=== PATIENT | male | born 2005 | race Caucasian/White ===

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

== ENCOUNTER 2023-09-30 11:09 | Inpatient (IN) ==
[2023-09-30 11:41] LABS: ABS Basophils 0.1 10^3/uL (0.0-0.1); ABS Eosinophils 0.9 10^3/uL (0.0-0.5); ABS Monocytes 0.6 10^3/uL (0.0-1.1); ABS Neutrophils 9.3 10^3/uL (1.5-7.6); ABS Nucleated RBC 0.02 10^3/ul; Eosinophil % 7.9 %; Hematocrit 48.4 % (38-53); Hemoglobin 16.5 g/dL (13.2-16.3); Lymphocyte % 8.2 %; Mean Corpuscular Hemoglobin 30.3 pg (27-33); Mean Corpuscular Hgb Conc 34.1 g/dL (31-36); Mean Platelet Volume 8.2 fL (7.5-11.2); Nucleated Red Blood Cells % 0.2 %/100WBC (0.0-0.8); Platelet Count 323 10^3/uL (150-450); Red Blood Count 5.44 10^6/uL (4.06-5.63)
[2023-09-30 11:49] LABS: INR 1.16 (0.83-1.13)
[2023-09-30 12:25] LABS: Albumin 5.2 g/dL (3.2-5.2); Albumin/Globulin Ratio 1.8 (1-3); Calcium 10.6 mg/dL (8.6-10.3); Creatinine, Serum 0.89 mg/dL (0.67-1.17); Globulin 2.9 g/dL (2-4); Potassium 4.4 mmol/L (3.5-5.0); Total Bilirubin 0.8 mg/dL (0.2-1.0); Total Protein 8.1 g/dL (6.4-8.9); eGFR CKD-EPI 126.6 (>60)
[2023-09-30 13:19] LABS: High Sensitivity Troponin 1 Hr 4 pg/mL (<20)
[2023-09-30] MEDS: Albuterol/Ipratropium NEB.SOL (2.5/0.5 MG) 3 ML NEB.SOLN INH ONE ×2 (14:21→15:58)
[2023-09-30] MEDS ORDERED: Albuterol 2.5mg/3 ml (0.083%) NEB.SOLN INH ONE (14:22)
[2023-09-30] MEDS ORDERED: Albuterol/Ipratropium NEB.SOL (2.5/0.5 MG) 3 ML NEB.SOLN ONE (14:22)
[2023-09-30] MEDS ORDERED: EPINEPHrine Anaphylaxis SYR CERTADOSE SYR KIT ONE (14:25)
[2023-09-30] MEDS: methylPREDNISolone SOD SUCC 125 mg 2 ML VIAL IV ONE (14:26)
[2023-09-30] MEDS: Magnesium Sulfate 2 gm BAG 2 GM/50 ML BAG IVPB ONE (14:31)
[2023-09-30] MEDS: cefTRIAXone 1 gm/50 mL D5W 1 GM/50 ML BAG IV ONE (14:32)
[2023-09-30] MEDS: Lactated Ringers 1000 ml BAG 1,000 ML IV SCH (14:33)
[2023-09-30] MEDS ORDERED: Ondansetron 4 mg VIAL 2 MG/ML 2 ml VIAL ONE ×2 (14:37→21:00)
[2023-09-30] MEDS: Iohexol 350 (CONTRAST) 500 ML MDV IV ONE (15:11)
[2023-09-30] MEDS: Albuterol 2.5mg/3 ml (0.083%) NEB.SOLN INH ONE (15:12)
[2023-09-30] MEDS: Azithromycin 500 mg/250 ml NS 500 MG/250 ML BAG IVPB ONE (15:25)
[2023-09-30] MEDS: Ondansetron 4 mg VIAL 2 MG/ML 2 ml VIAL IV ONE ×2 (15:25→21:02)
[2023-09-30 17:25] LABS: PCO2 Arterial 36 mmHg (35-45); PO2 Arterial 74 mmHg (80-100)
[2023-09-30 17:33] LABS: C Reactive Protein 12.55 mg/L (<8.01)
[2023-09-30] MEDS ORDERED: Albuterol 2.5mg/3 ml (0.083%) NEB.SOLN INH PRN (18:02)
[2023-09-30] MEDS: Albuterol/Ipratropium NEB.SOL (2.5/0.5 MG) 3 ML NEB.SOLN INH SCH (19:30)
[2023-09-30] MEDS: methylPREDNISolone SOD SUCC 40 mg/ml 1 ml VIAL IV SCH (21:02)
[2023-10-01] MEDS: Lactated Ringers 1000 ml BAG 1,000 ML IV SCH (00:16)
[2023-10-01] MEDS: Albuterol/Ipratropium NEB.SOL (2.5/0.5 MG) 3 ML NEB.SOLN INH SCH (02:08)
[2023-10-01 06:48] LABS: Hematocrit 43.3 % (38-53); Hemoglobin 14.7 g/dL (13.2-16.3); Mean Corpuscular Hemoglobin 30.6 pg (27-33); Mean Corpuscular Hgb Conc 33.9 g/dL (31-36); Mean Corpuscular Volume 90.2 fL (80-97); Mean Platelet Volume 8.5 fL (7.5-11.2); Platelet Count 303 10^3/uL (150-450); Red Cell Distribution Width 14.2 % (12-17); White Blood Count 8.9 10^3/uL (3.6-10.2)
[2023-10-01 07:26] LABS: Creatinine, Serum 0.8 mg/dL (0.67-1.17); Potassium 4.6 mmol/L (3.5-5.0); eGFR CKD-EPI 130.7 (>60)
[2023-10-01] MEDS: cefTRIAXone 1 gm/50 mL D5W 1 GM/50 ML BAG IV SCH (15:27)
[2023-10-02 07:02] LABS: Calcium 9.8 mg/dL (8.6-10.3); Creatinine, Serum 0.87 mg/dL (0.67-1.17); Magnesium 2.2 mg/dL (1.9-2.7); Potassium 4.8 mmol/L (3.5-5.0); eGFR CKD-EPI 127.5 (>60)
[2023-10-02] MEDS ORDERED: Albuterol/Ipratropium NEB.SOL (2.5/0.5 MG) 3 ML NEB.SOLN INH PRN (08:25)
[2023-10-03] MEDS ORDERED: Prochlorperazine 5 mg/ml 2 ml VIAL (10 mg) IV PRN (07:14)
[2023-10-03] MEDS: Ondansetron 4 mg VIAL 2 MG/ML 2 ml VIAL IV PRN (07:28)
[2023-10-03 08:00] LABS: ABS Lymphocytes 1.6 10^3/uL (1.0-4.8); ABS Monocytes 0.6 10^3/uL (0.0-1.1); ABS Neutrophils 8.5 10^3/uL (1.5-7.6); ABS Nucleated RBC 0.01 10^3/ul; Hematocrit 45.9 % (38-53); Hemoglobin 15.9 g/dL (13.2-16.3); Lymphocyte % 15.2 %; Mean Corpuscular Hgb Conc 34.5 g/dL (31-36); Mean Corpuscular Volume 89.9 fL (80-97); Mean Platelet Volume 8.1 fL (7.5-11.2); Nucleated Red Blood Cells % 0.1 %/100WBC (0.0-0.8); Platelet Count 352 10^3/uL (150-450); Red Blood Count 5.11 10^6/uL (4.06-5.63); Red Cell Distribution Width 14.6 % (12-17); White Blood Count 10.8 10^3/uL (3.6-10.2)
[2023-10-03 08:43] LABS: Albumin 4.7 g/dL (3.2-5.2); Albumin/Globulin Ratio 1.6 (1-3); Calcium 10.1 mg/dL (8.6-10.3); Creatinine, Serum 0.84 mg/dL (0.67-1.17); Globulin 2.9 g/dL (2-4); Magnesium 2.1 mg/dL (1.9-2.7); Potassium 4.4 mmol/L (3.5-5.0); Total Bilirubin 0.5 mg/dL (0.2-1.0); Total Protein 7.6 g/dL (6.4-8.9); eGFR CKD-EPI 128.8 (>60)
[2023-10-03] MEDS: Al Hydrox/Mg Hydrox/Simet LIQ 30 ML UDC PO ONE (09:03)
[2023-10-03] MEDS: Pantoprazole VIAL 40 MG VIAL IV SCH (09:03)
[2023-10-04 10:33] VITALS: BP 139/87
== END 2023-10-04 11:15 | disposition home or self-care (01) | DRG 202 ==
LOC: ED 11:09 → EDHOLD 11:09 → SUATTDRO 17:34 → MEDTELE 21:49
PROVIDERS: ADMIT Internal Medicine; ATTEND Student in an Organized Health Care Education/Training Program

== ENCOUNTER 2024-07-22 17:46 | Observation (INO) ==
[2024-07-22 19:19] LABS: ABS Basophils 0.1 10^3/uL (0.0-0.1); ABS Eosinophils 1.9 10^3/uL (0.0-0.5); ABS Lymphocytes 1.6 10^3/uL (1.0-4.8); ABS Monocytes 0.8 10^3/uL (0.0-1.1); ABS Neutrophils 7.3 10^3/uL (1.5-7.6); ABS Nucleated RBC 0.01 10^3/ul; Eosinophil % 16.4 %; Hematocrit 51.2 % (38-53); Hemoglobin 17.6 g/dL (13.2-16.3); Lymphocyte % 13.6 %; Mean Corpuscular Hemoglobin 31.1 pg (27-33); Mean Corpuscular Hgb Conc 34.4 g/dL (31-36); Mean Corpuscular Volume 90.7 fL (80-97); Mean Platelet Volume 8.1 fL (7.5-11.2); Nucleated Red Blood Cells % 0.1 %/100WBC (0.0-0.8); Platelet Count 358 10^3/uL (150-450); Red Blood Count 5.65 10^6/uL (4.06-5.63); Red Cell Distribution Width 14.5 % (12-17); White Blood Count 11.7 10^3/uL (3.6-10.2)
[2024-07-22] MEDS ORDERED: Albuterol/Ipratropium NEB.SOL (2.5/0.5 MG) 3 ML NEB.SOLN INH PRN (19:51)
[2024-07-22 19:56] LABS: High Sens Troponin Baseline 3 pg/mL (<20)
[2024-07-22 20:00] LABS: Albumin 5.2 g/dL (3.5-5.7); Calcium 10.7 mg/dL (8.6-10.3); Creatinine, Serum 0.97 mg/dL (0.67-1.17); Potassium 4.3 mmol/L (3.5-5.0); Total Protein 8.7 g/dL (6.4-8.9); eGFR CKD-EPI 114.6 (>60)
[2024-07-22 20:01] LABS: Albumin/Globulin Ratio 1.5 (1-3); Globulin 3.5 g/dL (2-4); Total Bilirubin 1.3 mg/dL (0.2-1.0)
[2024-07-22 20:07] LABS: INR 1.29 (0.85-1.14)
[2024-07-22] MEDS: Magnesium Sulfate 2 gm BAG 2 GM/50 ML BAG IVPB ONE (20:42)
[2024-07-22] MEDS: methylPREDNISolone SOD SUCC 125 mg 2 ML VIAL IV ONE (20:42)
[2024-07-22] MEDS: Albuterol/Ipratropium NEB.SOL (2.5/0.5 MG) 3 ML NEB.SOLN INH STA (20:46)
[2024-07-22] MEDS ORDERED: Iohexol 350 (CONTRAST) 500 ML MDV IV ONE (21:51)
[2024-07-22 23:06] LABS: C Reactive Protein 115.32 mg/L (<8.01)
[2024-07-22] MEDS: cefTRIAXone 1 gm/50 mL D5W 1 GM/50 ML BAG IV ONE (23:53)
[2024-07-23] MEDS: Azithromycin 500 mg/250 ml NS 500 MG/250 ML BAG IVPB ONE (00:47)
[2024-07-23] MEDS: Lactated Ringers 1000 ml BAG 1,000 ML IV SCH (02:34)
[2024-07-23] MEDS: Albuterol/Ipratropium NEB.SOL (2.5/0.5 MG) 3 ML NEB.SOLN INH SCH (05:58)
[2024-07-23] MEDS: Enoxaparin 40 MG/0.4 ML SYR SUBCUT SCH (05:59)
[2024-07-23 06:01] LABS: ABS Lymphocytes 0.8 10^3/uL (1.0-4.8); ABS Monocytes 0.1 10^3/uL (0.0-1.1); ABS Neutrophils 4.4 10^3/uL (1.5-7.6); Eosinophil % 0.5 %; Hematocrit 46.2 % (38-53); Hemoglobin 16.3 g/dL (13.2-16.3); Lymphocyte % 14.3 %; Mean Corpuscular Hemoglobin 31.6 pg (27-33); Mean Corpuscular Hgb Conc 35.3 g/dL (31-36); Mean Corpuscular Volume 89.4 fL (80-97); Mean Platelet Volume 7.9 fL (7.5-11.2); Nucleated Red Blood Cells % 0.1 %/100WBC (0.0-0.8); Platelet Count 349 10^3/uL (150-450); Red Blood Count 5.16 10^6/uL (4.06-5.63); Red Cell Distribution Width 14.7 % (12-17); White Blood Count 5.3 10^3/uL (3.6-10.2)
[2024-07-23 06:27] LABS: Creatinine, Serum 0.9 mg/dL (0.67-1.17); Potassium 4.7 mmol/L (3.5-5.0); eGFR CKD-EPI 125.4 (>60)
[2024-07-23] MEDS: methylPREDNISolone SOD SUCC 40 mg/ml 1 ml VIAL IV SCH (17:46)
[2024-07-23] MEDS: cefTRIAXone 1 gm/50 mL D5W 1 GM/50 ML BAG IV SCH (23:48)
[2024-07-24] MEDS ORDERED: cefTRIAXone 1 gm/50 mL D5W 1 GM/50 ML BAG IV SCH
[2024-07-24] MEDS ORDERED: Azithromycin 500 mg/250 ml NS 500 MG/250 ML BAG IVPB SCH (02:00)
[2024-07-24] MEDS: Azithromycin 500 mg/250 ml NS 500 MG/250 ML BAG IVPB SCH (02:19)
[2024-07-24 11:12] VITALS: BP 145/80
== END 2024-07-24 11:00 | disposition home or self-care (01) ==
LOC: EDHOLD 17:46 → ED 17:46 → MED 07-23 07:45
PROVIDERS: ADMIT Internal Medicine; ATTEND Internal Medicine